=== PATIENT | female | born 1980 | race Caucasian/White ===

== ENCOUNTER 2016-08-08 09:06 | Emergency (ER) | payer BC ==
[~2016-08-08] VITALS: Ht 167.6 cm; Wt 89.9 kg
[2016-08-08] MEDS ORDERED: SODIUM CHLORIDE FLUSH 10 ML SYR IV PRN (09:55)
[2016-08-08] MEDS ORDERED: KETOROLAC 30 MG/ML (TORADOL) 1 ML VIAL IV ONE (09:55)
[2016-08-08] MEDS ORDERED: SODIUM CHLORIDE FLUSH 3 ML SYR IV PRN (09:55)
[2016-08-08] MEDS ORDERED: diphenhydrAMINE 50 MG/ML INJ (BENADRYL) IV SCH (09:55)
[2016-08-08] MEDS ORDERED: PROMETHAZINE HCL INJ 25 MG in SODIUM CHLORIDE 25 ML IV ONE (09:55)
--- NOTE | 2016-08-08 10:00 | NUR ---
PT STATES SHE HAS EITHER TINGLING HANDS OR NUMB HANDS BUT FEELS LIKE SHE IS NOT IN CONTROL OF HER MUSCLES. 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 CL
[2016-08-08 10:02] LABS: BILIRUBIN,URINE Negative (Negative); COLOR,URINE Yellow; GLUCOSE, URINE (UA) Negative (Negative); LEUKOCYTE ESTERASE ,URINE 2+ (Negative); UROBILINOGEN,URINE 0.2 mg/dL (0.2-1.0)
[2016-08-08 10:03] LABS: CLARITY,URINE Slightly Cloudy
[2016-08-08 10:11] LABS: URINE CENTRIFUGED VOLUME 12 mL
[2016-08-08 10:14] LABS: BASOPHILS % (AUTO) 0 % (0-2); EOSINOPHILS # (AUTO) 0.1 10^3uL; EOSINOPHILS % (AUTO) 1 % (0-4); LYMPHOCYTES # (AUTO) 2.7 X10^3; MEAN CORPUSCULAR VOLUME 81 FL (80-100); MEAN PLATELET VOLUME 10.6 FL (6.0-9.5); MONOCYTES # (AUTO) 0.8 X10^3; MONOCYTES % (AUTO) 8 % (3-11); NEUTROPHILS # (AUTO) 6.1 X10^3; NEUTROPHILS % (AUTO) 63 % (51-67); PLATELET COUNT 276 10^3uL (150-450); WHITE BLOOD COUNT 9.66 10^3uL (4.0-11.0)
[2016-08-08 10:14] LABS: AMPHETAMINE SCREEN, URINE Negative (Negative); CANNABINOID SCREEN, URINE Negative (Negative); METHAMPHETAMINE SCREEN URINE S NEGATIVE (NEGATIVE); OPIATE SCREEN URINE Negative (Negative); PROPOXYPHENE STAT NEGATIVE (NEGATIVE)
[2016-08-08 10:17] LABS: MEAN CORPUSCULAR HGB CONC 35.9 g/dL (31.0-37.0)
[2016-08-08 10:28] LABS: ALBUMIN 4.4 g/dL (3.4-5.0); ANION GAP 16.1 MEQ/L (3-15); CALCULATED IONIZED CALCIUM 3.9 mg/dL (3.8-4.6); TOTAL PROTEIN 7.9 g/dL (6.4-8.5)
[2016-08-08 13:04] VITALS: BP 157/86
== END 2016-08-08 12:57 | disposition home or self-care (01) ==
LOC: ED 09:10
DX: R51 Headache (principal)
CPT/HCPCS: 36415; 70450; 80053; 80307; 81003; 81015; 84443; 85025; 87088; 96361; 96365; 96375; 99284; J1200; J1885; J2550; J7030; 99283